=== PATIENT | male | born 1945 | race Caucasian/White ===

== ENCOUNTER 2017-11-02 20:24 | Observation (INO) | payer MEDICARE, SELFPAY ==
[2017-11-02 20:46] VITALS: BP 145/78; PULSE 65; RESP 20; TEMP 36.7; O2SAT 96; BMI 31.6
--- NOTE | 2017-11-02 20:51 | CT_ITS ---
CT abdomen pelvis wo con CLINICAL INDICATION: Diarrhea for 3 weeks ITS.REASON: abd pain ORDERING PHYSICIAN: Solomon Wall MD PATIENT AGE: 72 years COMPARISON: 03/17/2015 TECHNIQUE: Axial images obtained with sagittal and coronal reformats. All CT scans at the facility use one or more dose reduction, viz: automated exposure control; ma/kV adjustment per patient size (including targeted exams where dose is matched to indication; i.e. head); or iterative reconstruction technique. PROCEDURE: Oral Contrast: None IV Contrast: None . FINDINGS: There are chronic changes in the lung bases. Small hiatal hernia. No focal liver lesion. Prior cholecystectomy without ductal dilatation. The spleen is somewhat small. The adrenal glands and pancreas have an unremarkable appearance. Nonobstructing punctate left renal calculus in mid aspect of the left kidney 2 mm. Stabilizing density mid aspect of the left kidney anteriorly and mid aspect of the right kidney medially consistent with small cysts. Gastric diverticulum projects off the fundal region of the stomach posteriorly. Duodenal diverticulum also noted. No intestinal obstruction or free air. Unremarkable appendix. Tiny umbilical hernia containing fat. Extensive diverticulosis involving the descending and sigmoid colon. No evidence of diverticulitis. There is mild thickening of the sigmoid colon but may be due to nondistention. Colitis is also a consideration. No pelvic mass abnormal fluid collection or focal inflammatory change apparent. Osteosclerosis once again noted involving the right hemipelvis as before consistent with Paget disease.. IMPRESSION: 1. Sigmoid diverticulosis. No evidence of diverticulitis. Mild diffuse thickening of the sigmoid colon. This may be due to nondistention or could be seen with colitis as well. 2. Gastric diverticulum and duodenal diverticula 3. Nonobstructing left renal stone
[2017-11-02 21:13] VITALS: BP 140/88; BP 146/78; BP 154/95; PULSE 64; PULSE 65
--- NOTE | 2017-11-02 21:14 | HMH.EDNVD ---
ED Disposition Clinical Impression: Dehydration, Renal insufficiency, Melanotic stools Disposition: Still a Patient Condition on Discharge: Fair Instructions: DI for Gastrointestinal Bleeding Referrals: Solomon Wall MD [Primary Care Provider] - - Critical Care Critical Care Time: No Attestation: On 11/02/17, the high probability of a clinically significant, sudden or life threatening deterioration of the following system(s) required my full and direct attention, intervention and personal management. The time I documented below is in addition to time spent performing reported procedures but includes the following listed in this critical care notation. Medical Decision Making - Jose Inquiry Pt receiving controlled substance: No Jose was queried for this patient: No Vital Signs: 11/02/17 20:46 11/02/17 21:13 11/02/17 21:25 Temperature 98.1 F Temperature Source Oral Pulse Rate [Orthostatic Lying Left] 64 Pulse Rate [Orthostatic Sitting Left] 65 Pulse Rate [Orthostatic Standing Left] 64 Pulse Rate [Right Radial] 65 64 Respiratory Rate 20 Blood Pressure [Orthostatic Lying Left Arm] 140/88 Blood Pressure [Orthostatic Sitting Left Arm] 154/95 Blood Pressure [Orthostatic Standing Left Arm] 146/78 Blood Pressure [Right Arm] 145/78 140/88 Blood Pressure Mean [Right Arm] 100 105 Blood Pressure Source [Right Arm] Automatic Cuff Blood Pressure Position [Right Arm] Sitting Supine 02 Sat by Pulse Oximetry 96 97 Oxygen Delivery Method Room Air - Lab Data Lab Results 11/02/17 21:10: Urine Color Yellow, Urine Appearance Clear, Urine pH 6.0, Ur Specific [place] >= 1.030, Urine Protein Negative, Urine Glucose (UA) Negative, Urine Ketones Trace, Urine Blood Negative, Urine Nitrate Negative, Urine Bilirubin 1+ A, Urine Urobilinogen 0.2, Ur Leukocyte Esterase Negative, Urine RBC None, Urine WBC Occasional, Ur Squamous Epith Cells Occasional, Urine Bacteria Trace, Urine Mucus 1+, Stool Occult Blood Positive A 11/02/17 21:15: WBC 8.8, RBC 5.30, Hgb 13.9 L, Hct 44.7, MCV 84.3, MCH 26.3 L, MCHC 31.2 L, RDW 16.2, Plt Count 338, MPV 7.4, Neut % (Auto) 59.3, Lymph % (Auto) 26.3, [place] % (Auto) 8.7, Eos % (Auto) 4.8, Baso % (Auto) 1.0, Neut # (Auto) 5.2, Lymph # (Auto) 2.3, [place] # (Auto) 0.8, Eos # (Auto) 0.4, Baso # (Auto) 0.1 11/02/17 21:15: Sodium 139, Potassium 3.9, Chloride 104, Carbon Dioxide 25, Anion Gap 13.9, BUN 15, Creatinine 1.54 H, Estimated Creat Clear 60, Estimated GFR 45 L, Est GFR ( Amer) 54 L, Glucose 110 H, Calcium 8.5, Total Bilirubin 0.3, AST 16, ALT 35, Alkaline Phosphatase 71, Total Creatine Kinase 196, CK-MB (CK-2) 1.1, CK-MB (CK-2) Rel Index 0.6, Troponin I < 0.02, Total Protein 7.4, Albumin 3.5, Globulin 3.9 H, Albumin/Globulin Ratio 0.9 L 11/02/17 21:15: Magnesium 1.8 Result diagrams: 11/02/17 21:15 11/02/17 21:15 Orders (Tests/Meds): ED MEDICATIONS Discontinued Medications Generic Name Dose Route Start Last Admin Trade Name Freq PRN Reason Stop Dose Admin Sodium Chloride 1,000 mls @ 999 mls/hr 11/02/17 21:00 11/02/17 20:57 Sod Chlor 0.9% 1000ml Bag IV 11/02/17 22:00 999 mls/hr .Q1H1M KELSEY Administration Sodium Chloride 1,000 mls @ 999 mls/hr 11/02/17 21:15 11/02/17 21:14 Sod Chlor 0.9% 1000ml Bag IV 11/02/17 22:15 Not Given .Q1H1M KELSEY ORDERS Category Date Time Status Type and Screen Stat BBK 11/02/17 22:[address] abdomen pelvis wo con Stat Cat Scan 11/02/17 20:51 Taken - ECG Data Tracing #1 Sinus bradycardia 55/min incomplete right bundle branch no acute findings. ECG initial impression date: 11/02/17 ECG initial impression time: 21:51 Medical Decision Narrative: The patient remained hemodynamically stable his hemoglobin was similar to prior level but his stool was positive. His creatinine was elevated and his urine was concentrated. I discussed with Dr. Philippe who agreed to admit the patient for gen
--- NOTE | 2017-11-02 21:19 | ED_ITS ---
ED Disposition Clinical Impression: Dehydration, Renal insufficiency, Melanotic stools Disposition: Still a Patient Condition on Discharge: Fair Instructions: DI for Gastrointestinal Bleeding Referrals: Solomon aWll MD [Primary Care Provider] - - Critical Care Critical Care Time: No Attestation: On 11/02/17, the high probability of a clinically significant, sudden or life threatening deterioration of the following system(s) required my full and direct attention, intervention and personal management. The time I documented below is in addition to time spent performing reported procedures but includes the following listed in this critical care notation. Medical Decision Making - Jose Inquiry Pt receiving controlled substance: No Jose was queried for this patient: No Vital Signs: 11/02/17 20:46 11/02/17 21:13 11/02/17 21:25 Temperature 98.1 F Temperature Source Oral Pulse Rate [Orthostatic Lying Left] 64 Pulse Rate [Orthostatic Sitting Left] 65 Pulse Rate [Orthostatic Standing Left] 64 Pulse Rate [Right Radial] 65 64 Respiratory Rate 20 Blood Pressure [Orthostatic Lying Left Arm] 140/88 Blood Pressure [Orthostatic Sitting Left Arm] 154/95 Blood Pressure [Orthostatic Standing Left Arm] 146/78 Blood Pressure [Right Arm] 145/78 140/88 Blood Pressure Mean [Right Arm] 100 105 Blood Pressure Source [Right Arm] Automatic Cuff Blood Pressure Position [Right Arm] Sitting Supine 02 Sat by Pulse Oximetry 96 97 Oxygen Delivery Method Room Air - Lab Data Lab Results 11/02/17 21:10: Urine Color Yellow, Urine Appearance Clear, Urine pH 6.0, Ur Specific [place] >= 1.030, Urine Protein Negative, Urine Glucose (UA) Negative, Urine Ketones Trace, Urine Blood Negative, Urine Nitrate Negative, Urine Bilirubin 1+ A, Urine Urobilinogen 0.2, Ur Leukocyte Esterase Negative, Urine RBC None, Urine WBC Occasional, Ur Squamous Epith Cells Occasional, Urine Bacteria Trace, Urine Mucus 1+, Stool Occult Blood Positive A 11/02/17 21:15: WBC 8.8, RBC 5.30, Hgb 13.9 L, Hct 44.7, MCV 84.3, MCH 26.3 L, MCHC 31.2 L, RDW 16.2, Plt Count 338, MPV 7.4, Neut % (Auto) 59.3, Lymph % (Auto ) 26.3, [place] % (Auto) 8.7, Eos % (Auto) 4.8, Baso % (Auto) 1.0, Neut # (Auto) 5.2, Lymph # (Auto) 2.3, [place] # (Auto) 0.8, Eos # (Auto) 0.4, Baso # (Auto) 0.1 11/02/17 21:15: Sodium 139, Potassium 3.9, Chloride 104, Carbon Dioxide 25, Anion Gap 13.9, BUN 15, Creatinine 1.54 H, Estimated Creat Clear 60, Estimated GFR 45 L, Est GFR ( Amer) 54 L, Glucose 110 H, Calcium 8.5, Total Bilirubin 0.3, AST 16, ALT 35, Alkaline Phosphatase 71, Total Creatine Kinase 196, CK-MB (CK-2) 1.1, CK-MB (CK-2) Rel Index 0.6, Troponin I < 0.02, Total Protein 7.4, Albumin 3.5, Globulin 3.9 H, Albumin/Globulin Ratio 0.9 L 11/02/17 21:15: Magnesium 1.8 Result diagrams: 11/02/17 21:15 11/02/17 21:15 Orders (Tests/Meds): ED MEDICATIONS Discontinued Medications Generic Name Dose Route Start Last Admin Trade Name Freq PRN Reason Stop Dose Admin Sodium Chloride 1,000 mls @ 999 mls/hr 11/02/17 21:00 11/02/17 20:57 Sod Chlor 0.9% 1000ml Bag IV 11/02/17 22:00 999 mls/hr .Q1H1M KELSEY Administration Sodium Chloride 1,000 mls @ 999 mls/hr 11/02/17 21:15 11/02/17 21:14 Sod Chlor 0.9% 1000ml Bag IV 11/02/17 22:15 Not Given .Q1H1M KELSEY ORDERS
[2017-11-02 21:24] LABS: Microscopic, Urine URINE MICROSCOPIC (MICROSCOPIC)
[2017-11-02 21:25] VITALS: BP 140/88; PULSE 64; O2SAT 97
[2017-11-02 21:25] LABS: Occult Blood,Stool Positive (Negative)
[2017-11-02 21:26] LABS: Basophils # 0.1 K/mm3 (0-0.2); Eosinophils # 0.4 K/mm3 (0.0-0.4); Eosinophils % 4.8 % (0.1-12.0); Hematocrit 44.7 % (42.0-52.0); Hemoglobin 13.9 g/dL (14.1-18.0); Lymphocytes # 2.3 K/mm3 (0.7-4.5); Lymphocytes % 26.3 K/mm3 (10-50); Mean Corpuscular HGB Conc 31.2 g/dL (31.8-35.4); Mean Corpuscular Hemoglobin 26.3 pg (27.0-31.2); Mean Corpuscular Volume 84.3 fl (80-94); Mean Platelet Volume 7.4 fl (7.4-10.4); Monocytes # 0.8 K/mm3 (0.1-1.0); Monocytes % 8.7 % (1.7-9.3); Neutrophils # 5.2 K/mm3 (1.8-7.8); Neutrophils % 59.3 % (37.0-80.0); Platelet Count 338 K/mm3 (142-424); Red Cell Distribution Width 16.2 % (11.5-17.5); White Blood Count 8.8 K/mm3 (4.8-10.8)
[2017-11-02 21:27] LABS: Appearance,Urine CLEAR (Clear); Blood, Urine Negative (Negative); Color,Urine YELLOW (Yellow); Glucose,Urine (UA) Negative (Negative); Ketones,Urine TRACE (Negative); Leukocyte Esterase,Urine Negative (Negative); Nitrate,Urine Negative (Negative); Protein,Urine Negative (Negative); Specific Gravity, Urine >= 1.030 (1.005-1.030); Urobilinogen,Urine 0.2 EU/dl (0.2)
[2017-11-02 21:29] LABS: Bilirubin,Urine 1+ (Negative)
[2017-11-02 21:42] LABS: Bacteria,Urine Trace /lpf; Squamous Epithelial Cell,Urine Occasional #/hpf (0-5); WBC,Urine Occasional #/hpf (0-3)
[2017-11-02 21:43] LABS: Magnesium 1.8 mg/dL (1.4-2.2)
[2017-11-02 21:43] LABS: Mucus,Urine 1+ /lpf
[2017-11-02 22:11] LABS: Alanine Aminotransferase 35 U/L (12-78); Albumin Level 3.5 gm/dL (3.4-5.0); Albumin/Globulin Ratio 0.9 (1.1-1.8); Alkaline Phosphatase 71 U/L (46-116); Anion Gap 13.9 mEq/L (5-15); Aspartate Amino Transferase 16 U/L (15-37); Bilirubin,Total 0.3 mg/dL (0.2-1.0); Blood Urea Nitrogen 15 mg/dL (7-18); CKMB Relative Index 0.6 U/L (0-4.0); Calcium 8.5 mg/dL (8.5-10.1); Carbon Dioxide 25 mmol/L (21.0-32.0); Chloride 104 mmol/L (98-107); Creatine Kinase 196 U/L (39-308); Creatine Kinase MB 1.1 ng/ml (0.0-3.6); Creatinine Clearance Estimated 60 mL/min (0-300); Creatinine,Serum 1.54 mg/dL (0.70-1.30); Estimated Glomerular Filt Rate 45 ml/min (>60); GFR (African American) 54 ML/MIN (>60); Globulin 3.9 gm/dl (1.3-3.2); Glucose 110 mg/dL (74-106); Potassium 3.9 mmoL/L (3.5-5.1); Sodium 139 mmol/L (136-145); Total Protein,Serum 7.4 gm/dL (6.4-8.2); Troponin I < 0.02 ng/ml (0.00-0.06)
[2017-11-02 23:23] VITALS: BP 132/70; PULSE 85; RESP 20; TEMP 36.6; O2SAT 99
[2017-11-02 23:24] VITALS: O2SAT 96
[2017-11-02 23:44] VITALS: BP 149/74; PULSE 61; RESP 22; TEMP 36.4; O2SAT 96
[2017-11-02 23:45] VITALS: BMI 33.9
--- NOTE | 2017-11-03 00:23 | PC.NURSE ---
PT IS NOT ABLE TO PROVIDE MEDICATION LIST AT THIS TIME. PT STATES HE WILL HAVE BRING IN AM.
[2017-11-03 03:46] VITALS: BP 151/74; PULSE 72; RESP 20; TEMP 36.5; O2SAT 94
--- NOTE | 2017-11-03 04:00 | PC.NURSE ---
PT HAS BEEN RESTLESS SINCE ARRIVING TO SHIFT. HAS BEEN UP AMBULATING IN HALLWAY. PT STATES HE HAS HAD ONE BLOODY STOOL SINCE HIS ARRIVAL TO FLOOR. HE HAS NOT C/O OF ANY PAIN. NO N/V. V/S HAVE REMAINED STABLE. 0.9% NS INFUSING @ 75 ML/HR. NO OTHER CONCERNS AT THIS TIME. WILL CONTINUE TO MONITOR.
[2017-11-03 07:15] LABS: Anion Gap 11.1 mEq/L (5-15); Blood Urea Nitrogen 16 mg/dL (7-18); Carbon Dioxide 23 mmol/L (21.0-32.0); Chloride 105 mmol/L (98-107); Creatinine Clearance Estimated 73 mL/min (0-300); Creatinine,Serum 1.36 mg/dL (0.70-1.30); Estimated Glomerular Filt Rate 52 ml/min (>60); GFR (African American) 63 ML/MIN (>60); Glucose 88 mg/dL (74-106); Potassium 4.1 mmoL/L (3.5-5.1); Sodium 135 mmol/L (136-145)
[2017-11-03 07:16] LABS: Basophils # 0.1 K/mm3 (0-0.2); Basophils % 0.7 % (0.1-2.0); Eosinophils # 0.4 K/mm3 (0.0-0.4); Eosinophils % 5.5 % (0.1-12.0); Hematocrit 42.1 % (42.0-52.0); Hemoglobin 13.2 g/dL (14.1-18.0); Lymphocytes # 2.3 K/mm3 (0.7-4.5); Mean Corpuscular HGB Conc 31.3 g/dL (31.8-35.4); Mean Corpuscular Hemoglobin 26.3 pg (27.0-31.2); Mean Corpuscular Volume 84.3 fl (80-94); Mean Platelet Volume 7.4 fl (7.4-10.4); Monocytes # 0.7 K/mm3 (0.1-1.0); Monocytes % 8.4 % (1.7-9.3); Neutrophils # 4.5 K/mm3 (1.8-7.8); Neutrophils % 56.4 % (37.0-80.0); Platelet Count 295 K/mm3 (142-424); Red Cell Distribution Width 16.2 % (11.5-17.5); White Blood Count 7.9 K/mm3 (4.8-10.8)
--- NOTE | 2017-11-03 07:27 | PC.NURSE ---
PT REPORT HAND OFF TO A. BOUT
--- NOTE | 2017-11-03 07:33 | PC.NURSE ---
REPORT GIVEN TO Manuelito CLARK W/C
--- NOTE | 2017-11-03 07:44 | HMH.PHAVTE ---
[facility] Pharmacy VTE Monitoring - Patient Demographics Admission date: 11/03/17 Report Date: 11/03/17 Time: 07:44 Allergies/Adverse Reactions: Patient Allergies No Known Allergies Allergy (Verified 11/02/17 20:50) Height: 1.75 m Weight: 104.099 kg Patient Problems: Current Active Problems Dehydration (Acute) Renal insufficiency (Acute) Melanotic stools (Acute) - VTE Risk Labs: VTE Related Lab Results Hgb 13.2 g/dL (14.1-18.0) L 11/03/17 06:30 Hct 42.1 % (42.0-52.0) 11/03/17 06:30 Plt Count 295 K/mm3 (142-424) 11/03/17 06:30 BUN 16 mg/dL (7-18) 11/03/17 06:30 Creatinine 1.36 mg/dL (0.70-1.30) H 11/03/17 06:30 Estimated Creat Clear 73 mL/min (0-300) 11/03/17 06:30 VTE Score: 5 VTE Risk Level: Low Risk Clinical Trial Participant: No - Prophylaxis VTE Prophylaxis Ordered?: Yes Types of VTE Prophylaxis: TEDS Knee High Location of Applied Device: Bilateral Lower Extremeties
[2017-11-03 08:00] VITALS: BP 125/68; PULSE 64; RESP 16; TEMP 36.4; O2SAT 91
--- NOTE | 2017-11-03 09:56 | HMH.HPDC ---
General - General Admission date: 11/03/17 Discharge date: 11/03/17 *Admission Date: 11/03/17 *Chief complaint: diarreha *History of present illness: 72 years old male with hx of reflux disease,htn, anxiety and back pain. He denies the use of nonsteroidal anti-inflammatories or daily aspirin. Pt states 10 days ago he developed loose bowel movements in the early mornings 3 days later he started using Pepto-Bismol with a result of black stool. pt states his daughter told him this might be blood so he came to the ED to be evaluated. His last bowel movement was at 630 this morning ( 15 hours ago). He denies dizziness lightheadedness shortness of breath chest pain palpitation nausea or vomiting. He denies dysuria or hematuria. He denies fever or chills. [facility] History I have reviewed the patient's past medical history: Yes Medical History: Reports:: Cancer (prostate), Deep Vein Thrombosis, Heart Murmur, Hypertension Denies:: Diabetes Mellitus Type 1, Diabetes Mellitus Type 2, MRSA Other Medical History: Reports: Arthritis Other Surgeries: Yes: Other (prostate, ribs, gallbladder) Amputation: No Fractures: No - *Social History Educational Level: Completed [employer] Smoking Status: Current every day smoker Tobacco Type: cigarettes # Packs/Day (cigarettes): 1 #Yrs smoked (if former smoker): 50 Alcohol Intake: never Occupational Status: retired Housing: house Household Members: spouse - Psychiatric History Expresses thoughts of harming self/others: None Suicide Plan Description: No Plan *Family Hx:: Cancer, Heart Attack, Hyperlipidemia, Hypertension, Stroke Review of Systems - Constitutional Denies body ache(s), Denies chills, Denies fatigue - Eyes Denies change in vision - ENT Denies change in voice - *Cardiovascular Denies chest pain with activity - *Respiratory Denies chest congestion - *Gastrointestinal Reports black, tarry stools, Denies abdominal pain, Denies bloating, Denies change in bowel habits, Denies bright, red blood in stools - *Genitourinary Denies difficulty urinating - *Musculoskeletal Denies joint pain - Integumentary/Breasts Denies bleeding lesions - *Neurologic Denies abnormal hearing - Endocrine Denies excessive sweating - Hematologic/Lymphatic Denies enlarged lymph nodes Exam Vital signs and Labs for Last 24 Hours: Temp Pulse Resp BP Pulse Ox 97.6 F 64 16 125/68 91 L 11/03/17 08:00 11/03/17 08:00 11/03/17 08:00 11/03/17 08:00 11/03/17 08:00 Laboratory Results - last 24 hr 11/03/17 06:30: WBC 7.9, RBC 5.00, Hgb 13.2 L, Hct 42.1, MCV 84.3, MCH 26.3 L, MCHC 31.3 L, RDW 16.2, Plt Count 295, MPV 7.4, Neut % (Auto) 56.4, Lymph % (Auto) 29.0, [place] % (Auto) 8.4, Eos % (Auto) 5.5, Baso % (Auto) 0.7, Neut # (Auto) 4.5, Lymph # (Auto) 2.3, [place] # (Auto) 0.7, Eos # (Auto) 0.4, Baso # (Auto) 0.1 11/03/17 06:30: Sodium 135 L, Potassium 4.1, Chloride 105, Carbon Dioxide 23, Anion Gap 11.1, BUN 16, Creatinine 1.36 H, Estimated Creat Clear 73, Estimated GFR 52 L, Est GFR ( Amer) 63, Glucose 88 I & O for Last 24 hours: Intake & Output 10/31/17 11/01/17 11/02/17 11/03/17 11:59 11:59 11:59 11:59 Intake Total 377 / 377 Balance 377 / 377 Weight 229 lb 8 oz - Constitutional no acute distress - *Routine HEENT Exam Head: Present: normocephalic Eye: Present: PERRL ENT: Present: mucous membranes moist - *Routine Respiratory Exam Present: CTA bilaterally - *Routine Cardiovascular Exam Present: RRR - *Routine Abdominal Exam Present: soft - *Routine Neurological Exam Present: alert, oriented X3, CN II-XII intact - Routine Psychiatric Exam Present: normal affect, normal thought process Hospital Course Hospital Course: iv fluids, recheck labs, pt states he is ready to be dc home, one bm today no blood and brown in color Results Labs on day of discharge: Labs from last 24 hours 11/03/17 11/03/17 06:30 06:30 WBC
--- NOTE | 2017-11-03 09:59 | P.HPDS_ITS ---
General - General Admission date: 11/03/17 Discharge date: 11/03/17 *Admission Date: 11/03/17 *Chief complaint: diarreha *History of present illness: 72 years old male with hx of reflux disease,htn, anxiety and back pain. He denies the use of nonsteroidal anti-inflammatories or daily aspirin. Pt states 10 days ago he developed loose bowel movements in the early mornings 3 days later he started using Pepto-Bismol with a result of black stool. pt states his daughter told him this might be blood so he came to the ED to be evaluated. His last bowel movement was at 630 this morning ( 15 hours ago). He denies dizziness lightheadedness shortness of breath chest pain palpitation nausea or vomiting. He denies dysuria or hematuria. He denies fever or chills. [facility] History I have reviewed the patient's past medical history: Yes Medical History: Reports:: Cancer (prostate), Deep Vein Thrombosis, Heart Murmur , Hypertension Denies:: Diabetes Mellitus Type 1, Diabetes Mellitus Type 2, MRSA Other Medical History: Reports: Arthritis Other Surgeries: Yes: Other (prostate, ribs, gallbladder) Amputation: No Fractures: No - *Social History Educational Level: Completed Trade [employer] Smoking Status: Current every day smoker Tobacco Type: cigarettes # Packs/Day (cigarettes): 1 #Yrs smoked (if former smoker): 50 Alcohol Intake: never Occupational Status: retired Housing: house Household Members: spouse - Psychiatric History Expresses thoughts of harming self/others: None Suicide Plan Description: No Plan *Family Hx:: Cancer, Heart Attack, Hyperlipidemia, Hypertension, Stroke Review of Systems - Constitutional Denies body ache(s), Denies chills, Denies fatigue - Eyes Denies change in vision - ENT Denies change in voice - *Cardiovascular Denies chest pain with activity - *Respiratory Denies chest congestion - *Gastrointestinal Reports black, tarry stools, Denies abdominal pain, Denies bloating, Denies change in bowel habits, Denies bright, red blood in stools - *Genitourinary Denies difficulty urinating - *Musculoskeletal Denies joint pain - Integumentary/Breasts Denies bleeding lesions - *Neurologic Denies abnormal hearing - Endocrine Denies excessive sweating - Hematologic/Lymphatic Denies enlarged lymph nodes Exam Vital signs and Labs for Last 24 Hours: Temp Pulse Resp BP Pulse Ox 97.6 F 64 16 125/68 91 L 11/03/17 08:00 11/03/17 08:00 11/03/17 08:00 11/03/17 08:00 11/03/17 08:00 Laboratory Results - last 24 hr 11/03/17 06:30: WBC 7.9, RBC 5.00, Hgb 13.2 L, Hct 42.1, MCV 84.3, MCH 26.3 L, MCHC 31.3 L, RDW 16.2, Plt Count 295, MPV 7.4, Neut % (Auto) 56.4, Lymph % (Auto ) 29.0, [place] % (Auto) 8.4, Eos % (Auto) 5.5, Baso % (Auto) 0.7, Neut # (Auto) 4.5, Lymph # (Auto) 2.3, [place] # (Auto) 0.7, Eos # (Auto) 0.4, Baso # (Auto) 0.1 11/03/17 06:30: Sodium 135 L, Potassium 4.1, Chloride 105, Carbon Dioxide 23, Anion Gap 11.1, BUN 16, Creatinine 1.36 H, Estimated Creat Clear 73, Estimated GFR 52 L, Est GFR ( Amer) 63, Glucose 88 I & O for Last 24 hours: Intake & Output 10/31/17 11/01/17 11/02/17 11/03/17 11:59 11:59 11:59 11:59 Intake Total 377 / 377 Balance 377 / 377 Weight 229 lb 8 oz - Constitutional no acute distress - *Routine HEENT Exam Head: Present: normocephalic Eye: Present: PERRL ENT: Present: mucous membranes mois
== END 2017-11-03 10:05 | disposition home or self-care (01) ==
LOC: ER 23:01 → 2ND 23:28
PROVIDERS: Admitting Provider Family Medicine; Emergency Provider Emergency Medicine; PCP Emergency Medicine; Visit Provider Emergency Medicine
DX: E86.0 Dehydration (principal); N28.9 Disorder of kidney and ureter, unspecified; R19.5 Other fecal abnormalities; I10 Essential (primary) hypertension; F41.9 Anxiety disorder, unspecified; F17.210 Nicotine dependence, cigarettes, uncomplicated; K21.9 Gastro-esophageal reflux disease without esophagitis; K64.4 Residual hemorrhoidal skin tags; Z85.46 Personal history of malignant neoplasm of prostate; Z86.718 Personal history of other venous thrombosis and embolism; Z80.9 Family history of malignant neoplasm, unspecified; Z82.49 Family history of ischemic heart disease and other diseases of the circulatory system; Z83.49 Family history of other endocrine, nutritional and metabolic diseases; Z82.3 Family history of stroke; Z79.899 Other long term (current) drug therapy
CPT/HCPCS: 36415; 74176; 80048; 80053; 81001; 82272; 82550; 82553; 83735; 84484; 85025; 86850; 93005; 96365; 99285; G0328; G0378

== ENCOUNTER 2019-05-29 10:45 | Outpatient (RCR) | payer MEDICARE, SELFPAY ==
--- NOTE | 2019-05-29 11:51 | HMH.PTOPEV ---
PT Outpatient Evaluation Rehab PT Outpatient Evaluation Start: 05/29/19 11:28 Freq: Status: Active Protocol: Document 05/29/19 11:28 AMPARO (Rec: 05/29/19 11:51 AMPARO [id number]) Electronically Signed By Cruz Francois, PT 05/29/19 11:28 Outpatient Therapy Subjective History Subjective History Pt reports h/o chronic LBP over the last ~2 yrs, localized generally around midline lumbar region. 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 pt reports no radicular s/s. Chief Complaint Pain,Stiff Symptom Type Ache,Sharp,Dull Symptoms Relieved By Rest/Positioning Symptoms Aggravated By Standing,Walking,Lifting Prior Functional Limitations Lifting,Standing,Walking, Bending/Stooping Current Functional Limitations Lifting,Standing,Walking, Bending/Stooping Symptom Description Constant but Variable Level of pain today (0-10) 5 Pain scale - at its best (0-10) 2 Pain scale - at its worst (0-10) 8 Lumbopelvic Eval Posture Thoracic Spine Posture Standing Position Flattened Lumbar Spine Posture Standing Position Flattened Assistive device Assistive Devices None / NA Gait Observation General Gait Pattern Observation No Deviations/Normal Palapation tenderness right lumbar spinal tenderness Yes: 2/4 paraspinal tenderness Yes: 2/4 left lumbar spinal tenderness Yes: 2/4 paraspinal tenderness Yes: 3/4 Lumbar/Sacral Palpation Findings Tenderness Accessory Movement L-spine Vertebrae Accessory Movements [place] that [place] Symptoms L3 bilateral L4 bilateral L5 bilateral Range of Motion Lumbar Spine Active Flexion Range of 0-70 Motion (degrees) Lumbar Spine Active Extension Range of 0-20 Motion (degrees) Left Lumbar Spine Lateral Flexion Active 0-30 Range of Motion (degrees) Right Lumbar Spine Lateral Flexion 0-30 Active Range of Motion (degrees) Lumbar Spine ROM Limitations Soft Tissue Tightness,Pain Manual Muscle Test Bilateral Knee Extension Strength Grade 5 Normal Knee Flexion Strength Grade 5 Normal Hip Flexion Strength Grade 4- Good- Extensor Hallucis Longus Strength Grade 5 Normal Ankle Dorsiflexion Strength Grade 4 Good Gastronemius/Soleus Strength Grade 4 Good DTR Rt Patellar
== END 2019-05-29 10:50 | disposition home or self-care (01) ==
LOC: PT 10:45
PROVIDERS: PCP Internal Medicine Adolescent Medicine; Visit Provider Internal Medicine Adolescent Medicine
DX: M54.5 Low back pain (principal)
CPT/HCPCS: 97010; 97012; 97014; 97110; 97163; G0283

== ENCOUNTER → 2019-10-15 15:50 | Outpatient (CLI) | payer MEDICARE, SELFPAY ==
--- NOTE | 2019-10-15 15:59 | XR_ITS ---
PROCEDURE: XR KNEE RT 3V CLINICAL INDICATION: KAMILLE KNEE PAIN COMPARISON: No exams were available for comparison FINDINGS: No fracture or dislocation. No lytic or blastic change. There is normal mineralization. There are moderate osteoarthritic changes of the medial compartment with mild osteoarthritis of the patellofemoral joint and minimal osteoarthritic change of the lateral compartment. Other findings:Small enthesophyte is present at the patella IMPRESSION: Osteoarthritis otherwise negative Dictated by: Asim Bell MD 10/15/2019 17:10 Electronically signed by Asim Bell MD in [place] 10/15/2019 17:10
--- NOTE | 2019-10-15 15:59 | XR_ITS ---
PROCEDURE: XR KNEE LT 3V CLINICAL INDICATION: KAMILLE KNEE PAIN COMPARISON: No exams were available for comparison FINDINGS: No fracture or dislocation. No lytic or blastic change. There is normal mineralization. Mild osteoarthritis noted of the medial compartment Other findings:None. IMPRESSION: Mild osteoarthritis Dictated by: Asim Bell MD 10/15/2019 17:11 Electronically signed by Asim Bell MD in [place] 10/15/2019 17:11
== END ==
PROVIDERS: PCP Internal Medicine Adolescent Medicine; Visit Provider Internal Medicine Adolescent Medicine
DX: M25.562 Pain in left knee (principal); M25.561 Pain in right knee
CPT/HCPCS: 73562